=== PATIENT | male | born 1950 | race Caucasian/White ===

== ENCOUNTER 2023-08-26 10:54 | Outpatient (OUT) | payer MEDICARE, SELFPAY ==
--- NOTE | 2023-08-26 | XR_ITS ---
[address] [address] Patient Name: ALEXIS CORBETT MRN: [id number] date: 1950 Sex: M Assigned Patient Location: Current Patient Location: Accession/Order Number: [id number] Exam Date: 08/26/2023 10:55 Report Date: 08/27/2023 06:49 At the request of: ENRIQUE DEL ANGEL Procedure: XR foot BRY min 3V EXAMINATION: XR foot BRY min 3V, XR ankle BRY min 3V HISTORY: BILATERAL FOOT PAIN COMPARISON: XR right ankle and foot 04/27/2018, XR ankle left 05/06/2016 FINDINGS: RIGHT FINDINGS: BONES: Mild narrowing of the first metatarsophalangeal joint. Interval osseous protrusion/beaking at anterior margin of the talar dome. Mild narrowing of the tibiotalar joint, lateral greater than medial. Small degenerative osteophyte along the anterior articular margin of tibial plafond. SOFT TISSUES: No visible soft tissue swelling. OTHER: Negative. LEFT FINDINGS: BONES: 1.6 cm lucency within lateral aspect of distal tibia. Small osseous protrusion/bone beaking at anterior margin of talar dome. SOFT TISSUES: No visible soft tissue swelling. OTHER: Negative. XR/XR foot BRY min 3V IMPRESSION: RIGHT CONCLUSION: 1. Interval osseous growth/bone beaking along anterior dorsal margin of the talus adjacent the talar dome which likely impedes flexion. 2. Mild degenerative changes of the tibiotalar joint. 3. Mild degenerative change of the first metatarsophalangeal joint. LEFT CONCLUSION: 1. Interval development of small osseous growth/bone beaking along the anterior margin of talar dome which may impede flexion. Smaller than seen on right. 2. Interval development of a smoothly marginated osseous lucency within lateral aspect of distal tibia adjacent the articular surface; subchondral cyst versus bone cyst. Consider MRI for further evaluation. Electronically authenticated by: KORINA DAVEY Date: 08/27/2023 06:49
--- NOTE | 2023-08-26 | XR_ITS ---
[address] [address] Patient Name: ALEXIS CORBETT MRN: [id number] date: 1950 Sex: M Assigned Patient Location: Current Patient Location: Accession/Order Number: [id number] Exam Date: 08/26/2023 10:55 Report Date: 08/27/2023 06:49 At the request of: ENRIQUE DEL ANGEL Procedure: XR ankle BRY min 3V EXAMINATION: XR foot BRY min 3V, XR ankle BRY min 3V HISTORY: BILATERAL FOOT PAIN COMPARISON: XR right ankle and foot 04/27/2018, XR ankle left 05/06/2016 FINDINGS: RIGHT FINDINGS: BONES: Mild narrowing of the first metatarsophalangeal joint. Interval osseous protrusion/beaking at anterior margin of the talar dome. Mild narrowing of the tibiotalar joint, lateral greater than medial. Small degenerative osteophyte along the anterior articular margin of tibial plafond. SOFT TISSUES: No visible soft tissue swelling. OTHER: Negative. LEFT FINDINGS: BONES: 1.6 cm lucency within lateral aspect of distal tibia. Small osseous protrusion/bone beaking at anterior margin of talar dome. SOFT TISSUES: No visible soft tissue swelling. OTHER: Negative. XR/XR ankle BRY min 3V IMPRESSION: RIGHT CONCLUSION: 1. Interval osseous growth/bone beaking along anterior dorsal margin of the talus adjacent the talar dome which likely impedes flexion. 2. Mild degenerative changes of the tibiotalar joint. 3. Mild degenerative change of the first metatarsophalangeal joint. LEFT CONCLUSION: 1. Interval development of small osseous growth/bone beaking along the anterior margin of talar dome which may impede flexion. Smaller than seen on right. 2. Interval development of a smoothly marginated osseous lucency within lateral aspect of distal tibia adjacent the articular surface; subchondral cyst versus bone cyst. Consider MRI for further evaluation. Electronically authenticated by: KORINA DAVEY Date: 08/27/2023 06:49
== END 2023-08-26 10:55 | disposition home or self-care (01) ==
LOC: EC 10:54
PROVIDERS: Visit Provider Podiatrist Foot & Ankle Surgery
DX: M25.572 Pain in left ankle and joints of left foot (principal); M25.571 Pain in right ankle and joints of right foot; M89.8X7 Other specified disorders of bone, ankle and foot
CPT/HCPCS: 73610; 73630

== ENCOUNTER 2023-11-17 11:57 | Outpatient (OUT) | payer MEDICARE, SELFPAY ==
--- NOTE | 2023-11-17 | XR_ITS ---
[address] [address] Patient Name: ALEXIS CORBETT MRN: [id number] date: 1950 Sex: M Assigned Patient Location: Current Patient Location: Accession/Order Number: [id number] Exam Date: 11/17/2023 12:03 Report Date: 11/18/2023 08:42 At the request of: KORINA MUÑOZ Procedure: XR knee RT 4V PROCEDURE: XR knee RT 4V COMPARISON: None. HISTORY: RIGHT KNEE PAIN FINDINGS: BONES:No acute fracture or dislocation. Mild degenerative changes with marginal osteophyte formation SOFT TISSUES:Negative. No visible soft tissue swelling. EFFUSION:Small joint effusion OTHER: Negative. XR/XR knee RT 4V IMPRESSION: Mild osteoarthritis Electronically authenticated by: SHELLEY STRANGE Date: 11/18/2023 08:42
--- OUTSIDE RECORDS SUMMARY | 2023-11-17 12:11 | XMS_ITS | CCD ---
Author Organization [facility] Care Team Providers Care Salt Washer Name Role Phone LISBETH EDOUARD Attending Unavailable LISBETH EDOUARD Consulting Unavailable LISBETH EDOUARD Admitting Unavailable WONDERLY, DR MERISSA Swenson Primary Care Unavailable Merissa Schulte MD Primary Care Provider Clinton HASKINS, Lamont Truong Attending Unavailab le WONDERLY, MERISSA Leela Referring Unavailable WONDERLY, MERISSA B Primary Care Unavailable WONDERLY, MERISSA B Referring Unavailable WONDERLY, MERISSA B Primary Care Unavailable WONDERLY, MERISSA B Referring Unavailable WONDERLY, MERISSA B Primary Care Unavailable JACOB DHILLON Referring Unavailable WONDERLY, MERISSA Leela Primary Care Unavailable JACOB DHILLON Attending Unavailable WONDERLY, MERISSA B Referring Unavailable WONDERLY, MERISSA B Primary Care Unavailable WONDERLY, MERISSA B Attending Unavailable WONDERLY, MERISSA B Referring Unavailable LIANNA JIMENEZ Attending Unavailable WONDERLY, MERISSA Swenson Attending Unavailable WONDERLY, MERISSA Swenson Attending Unavailable PUMPJOSH Attending Unavailable Allergies Allergy Classification Reported Allergen(s) Allergy Type Date of Onset Reaction(s) Facility (9 sources) Bee Venom Protein (Honey Bee); Translations: [BEE VENOM PROTEIN (HONEY BEE)] Propensity to adverse reactions to drug 03-05-2019 [facility] Medications Current Medications Medication Drug Class(es) Dates Sig (Normalized) Sig (Original) ascorbic acid 500 mg oral tablet (7 sources) Vitamin C take 3 tablets by mouth in the morning ascorbic acid (VITAMIN C) 500 mg tablet Take 3 tablets (1,500 mg total) by mouth in the morning. 0 Active cholecalciferol 0.125 mg oral tablet (7 sources) Vitamin D take 1 tablet by mouth in the morning cholecalciferol, vitamin D3, 5,000 units tablet Take 1 tablet (5,000 Units total) by mouth in the morning. 0 Active meloxicam 15 mg oral tablet (7 sources) Nonsteroidal Anti-inflammatory Drug take 1 tablet by mouth in the morning meloxicam (MOBIC) 15 mg tablet Take 1 tablet (15 mg total) by mouth in the morning. 0 Active vitamin e 100 unt oral capsule (7 sources) take 1 capsule by mouth in the morning vitamin E 100 units capsule Take 1 capsule (100 Units total) by mouth in the morning. 0 Active Problems Active Problems Problem Classification Problem Date Documented Date Episodic/Chronic Cancer of prostate (10 sources) Adenocarcinoma of prostate; Translations: [Malignant neoplasm of prostate] Onset: 03-26-2016 09-17-2022 Chronic Cardiac dysrhythmias (1 source) Supraventricular tachycardia; Translations: [Supraventricular tachycardia, unspecified] 06-27-2023 Chronic Other connective tissue disease (7 sources) Disorder of soft tissue; Translations: [Other specified soft tissue disorders] 06-27-2023 Episodic Other connective tissue disease (6 sources) Pain in right lower limb; Translations: [Pain in right leg] 06-27-2023 Episodic Other connective tissue disease (1 source) Other specified soft tissue disorders; Translations: [Other specified soft tissue disorders] Onset: 06-27-2023 Episodic Other connective tissue disease (1 source) Pain in right leg; Translations: [Pain in right leg] Onset: 06-27-2023 Episodic Unclassified (2 sources) CONTACT W/AND (SUSP) EXPOS COVID-19; Translations: [CONTACT W/AND (SUSP) EXPOS COVID-19] Onset: 10-12-2021 Unclassified (1 source) Supraventricular tachycardia, unspecified; Translations: [Supraventricular tachycardia, unspecified] Onset: 06-27-2023 Viral infection (1 source) COVID-19; Translations: [COVID-19] Onset: 10-12-2021 Past or Other Problems Problem Classification Problem Date Documented Da te Episodic/Chronic Genitourinary symptoms and ill-defined conditions (7 sources) Blood in urine; Translations: [Hematuria, unspecified] Onset: 06-01-2019 06-09-2019 Episodic Other and unspecified benign neoplasm (7 sources) Adenomatous polyp of colon ; Translations: [Benign neoplasm of sigmoid colon] Onset: 03-15-2019 03-15-2019 Episodic Other screening for suspected conditions (not mental disorders or infectious disease) (7 sources) Patient encounter status; Translations: [Encounter for screening for malignant neoplasm of colon] Onset: 02-25-2019 02-25-2019 Episodic Unclassified (1 source) CONTACT W/AND (SUSP) EXPOS COVID-19; Translations: [CONTACT W/AND (SUSP) EXPOS COVID-19] Onset: 10-11-2021 Unclassified (7 sources) Onset: 03-15-2019 03-15-2019 Results Test Name Value Interpretation Reference Range Facility Prostate specific Ag [Mass/V ol]on 09-17-2023 PROSTATIC SPEC ANT 0.21 ng/mL Normal 0.00-4.00 [facility] Comment on above: Result Comment: The method used for this test is Gousto DXI chemiluminescent immunoassay. Values obtained by different assay methods cannot be used interchangeably. Performed By: #### C , 53317-1, BMP, 1987-5, 3084-1, 12759-4, 36772-4, 27160-4, 5130-0, 12694-5, 93623-8, 35371-5 #### [facility] ([id number]) [address], [address] [place] [address] MR TIBIA FIBULA RIGHT W AND WO IV CONTRASTon 07-10-2023 MR TIBIA FIBULA RIGHT W AND WO IV CONTRAST MR TIBIA FIBULA RIGHT W AND WO IV CONTRAST HISTORY: abnormal us / mass calf TECHNIQUE: Routine MRI of the right tibia/fibula, with and without contrast. Given 19 mL of intravenous ProHance. COMPARISON: None available. RESULT: Ruptured Cantu's cyst, tracking inferiorly into the calf, with the dominant component measuring around 5.1 cm in length, and the ruptured component tracking inferiorly out of [id number]. No suspicious enhancement. No evidence for fracture, or marrow replacing process. Large zzuhc-pe-vynk imaging of the knee with probable tearing of the medial meniscus, but not well assessed on this study. Degenerative changes of the knee, not well assessed on this study. Visualized tendons and musculature grossly unremarkable. IMPRESSION: Ruptured Cantu's cyst tracking into the calf. No suspicious findings. ELECTRONICALLY SIGNED BY: Burak Leigh MD Normal Not Available BASIC METABOLIC PANLon 06-26 Anion gap [Moles/Vol] 10 mmol/L Normal 5-15 [facility] Comment on above: Performed By: #### Molina , 97820-9, BMP, 1987-08, 308-, 56330-2, 91795-1, 82329-4, 5130-0, 26190-1, 67781-9, #### [facility] ([id number]) [address], [address] [place] [address] Calcium [Mass/Vol] 9.1 mg/dL Normal 8.5-10.5 [facility] Comment on above: Performed By: #### Molina MAYFIELD, 97280-1, BMP, 1987-08, 308-, 25604-4, 63083-7, 29963-4, 5130-0, 35849-6, 17100-7, #### [facility] ([id number]) [address], [address] [place] [address] Chloride [Moles/Vol] 101 mmol/L Normal 98-109 [facility] Comment on above: Performed By: #### Molina MAYFIELD, 45563-1, BMP, 1987-08, 3083-04, 16413-0, 90559-9, 07984-3, 5130-0, 58702-6, 06722-5, #### [facility] ([id number]) [address], [address] [place] [address] CO2 [Moles/Vol] 26 mmol/L Normal 22-32 [facility] Comment on above: Performed By: #### Molina MAYFIELD, 33086-5, BMP, 1987-08, 3083-, 59651-1, 14617-7, 06495-2, 5130-0, 05479-9, 50624-8, 25962-7 #### [facility] ([id number]) [address], [address] [place] [address] Creatinine [Mass/Vol] 0.74 mg/dL Normal 0.60-1.30 [facility] Comment on above: Result Comment: METH OD TRACEABLE TO IDMS STANDARD Performed By: #### C TRAN, 21862-3, ADDY, 1987-08, 3083-, 49258-0, 52848-8, 31201-7, 5130-0, 31547-3, 59866-9, 17192-9 #### [facility] ([id number]) [address], [address] [place] [address] eGFR (CKD-EPI) NON-RACE DEPENDENT >90 Normal >59 [facility] Comment on above: Result Comment: Reported eGFR is based on the CKD-EPI 2020 equation that does not use a race coefficient. Performed By: #### C TRAN, 00806-9, ADDY, 1987-08, 3083-04, 47757-7, 34701-0, 32754-5, 5130-0, 38214-7, 16987-9, 22175-6 #### [facility] ([id number]) [address], [address] [place] [address] Glucose [Mass/Vol] 101 mg/dL High 65-99 [facility] Comment on above: Performed By: #### C TRAN, 85031-5, ADDY, 1987-08, 3083-04, 13365-2, 19625-4, 59149-4, 5130-0, 94992-6, 43502-7, 18832-8 #### [facility] ([id number]) [address], [address] [place] [address] Potassium [Moles/Vol] 3.9 mmol/L Normal 3.5-5.0 [facility] Comment on above: Performed By: #### C TRAN, 37573-6, ADDY, 1987-08, 3083-04, 44535-5, 61802-8, 27113-5, 5130-0, 25961-3, 84808-6, 75358-1 #### [facility] ([id number]) [address], [address] [place] [address] Sodium [Moles/Vol] 137 mmol/L Normal 134-146 [facility] Comment on above: Performed By: #### C TRAN, 17438-7, ADDY, 1987-08, 3083-, 12022-2, 78344-8, 95050-7, 5130-0, 74208-5, 76572-8, 05739-4 #### [facility] ([id number]) [address], [address] [place] [address] Urea nitrogen [Mass/Vol] 12 mg/dL Normal 5-27 [facility] Comment on above: Performed By: #### C TRAN, 58803-7, ADDY, 1987-08, 3083-04, , 42201-0, 51350-4, 5130-0, 13573-4, 80642-1, 85884-1 #### [facility] ([id number]) [address], [address] [place] [address] COMPLETE BLOOD COUNTon 06-26 Erythrocyte distribution width (RBC) [Ratio] 13.5 % Normal 11.5-15.0 [facility] Comment on above: Performed By: #### C TRAN, 91210-8, ADDY, 1987-08, 3083-04, , 86290-9, 27153-8, 5130-0, 18676-1, 49884-5, 19937-5 #### [facility] ([id number]) [address], [address] [place] [address] Hematocrit (Bld) [Volume fraction] 45.2 % Normal 39-49 [facility] Comment on above: Performed By: #### C TRAN, 62424-8, [facility], 1987-08, 3083-04, , 72562-3, 80325-5, 5130-0, 54281-1, 47929-0, 86858-4 #### [facility] ([id number]) [address] [facility], [address] [place] [address] Hemoglobin (Bld) [Mass/Vol] 15.3 g/dL Normal 13.0-17.0 [facility] Comment on above: Performed By: #### C TRAN, 76057-5, [facility], 1987-08, 3083-, 57922-6, 78753-0, 66956-3, 5130-0, 18635-9, 38013-0, 92157-0 #### [facility] ([id number]) [address], [address] [place] [address] MCH (RBC) [Entitic mass] 32.3 pg Normal 27-34 [facility] Comment on above: Performed By: #### C TRAN, 92205-5, ADDY, 1987-08, 3083-04, 79006-8, 88292-2, 71121-6, 5130-0, 78322-3, 58232-9, 34500-1 #### [facility] ([id number]) [address] [facility], [address] [place] [address] MCHC (RBC) [Mass/Vol] 33.9 g/dL Normal 32-36 [facility] Comment on above: Performed By: #### C TRAN, 57080-5, [facility], 1987-08, 3083-04, 48598-5, 10439-1, 09030-0, 5130-0, 55668-1, 19885-4, 73491-9 #### [facility] ([id number]) [address] [facility], [address] [place] [address] MCV (RBC) [Entitic vol] 95 fL Normal 80-100 [facility] Comment on above: Performed By: #### C TRAN, 69060-9, [facility], 1987-08, 3083-04, 16792-4, 59963-1, 68965-8, 5130-0, 32702-1, 72699-6, 67799-9 #### [facility] ([id number]) [address], [address] [place] [address] Platelet mean volume (Bld) [Entitic vol] 7.0 fL Normal 7-12 [facility] Comment on above: Performed By: #### C TRAN, 00061-4, ADDY, 1987-08, 3083-, 86236-8, 60505-9, 25514-6, 5130-0, 92506-4, 58093-4, 24247-2 #### [facility] ([id number]) [address], [address] [place] [address] Platelets (Bld) [#/Vol] 478 10*3/uL High 150-450 [facility] Comment on above: Performed By: #### Molina MAYFIELD, 90095-9, ADDY, 1987-08, 3083-04, 70571-0, 33515-0, 86690-5, 5130-0, 41243-4, 40737-0, #### [facility] ([id number]) [address], [address] [place] [address] RBC COUNT 4.74 X10E12/L Normal 4.10-5.70 [facility] Comment on above: Performed By: #### Molina MAYFIELD, 02165-8, [facility], 1987-08, 3083-, 96236-6, 11906-2, 74280-7, 5130-0, 72941-3, 30158-0, 48140-7 #### [facility] ([id number]) [address], [address] [place] [address] WBC (Bld) [#/Vol] 6.5 10*3/uL Normal 4.0-11.0 [facility] Comment on above: Performed By: #### Molina MAYFIELD, 32269-1, [facility], 1987-08, 3083-04, 94814-0, 88731-2, 02245-2, 5130-0, 37774-0, 77685-5, 18268-9 #### [facility] ([id number]) [address], [address] [place] [address] CRP [Mass/Vol]on 06-27-2023 C REACTIVE PROTEIN 3.2 mg/dL High 0.000-0.744 [facility] Comment on above: Performed By: #### Molina MAYFIELD, 08823-8, ADDY, 1987-08, 3083-, 15926-3, 77558-9, 21300-8, 5130-0, 93518-7, 15377-8, #### [facility] ([id number]) [address] [facility], [address] [place] [address] Chromatin Ab Qlon 06-27-2023 CHROMATIN AB IGG <0.2 Normal <1.0 [facility] Comment on above: Performed By: #### Molina MAYFIELD, 83837-9, [facility], 1987-08, 3083-04, 20462-9, 23143-7, 58931-5, 5130-0, 89684-8, 34683-6, #### [facility] ([id number]) [address] [facility], [address] [place] [address] DNA double strand Ab Qn (S)o n 06-27-2023 DOUBLE STRANDED DNA 13 IU/ML High <5 [facility] Comment on above: Result Comment: Interpretation-------- <5 Negative 5-9 Indeterminate >9 Positive Performed By: #### C TRAN, 25469-6, BMP, 1987-08, 3083-04, 06223-1, 86487-2, 11093-0, 5130-0, 96360-5, 15072-6, 68125-2 #### [facility] ([id number]) [address], [address] [place] [address] ESR Photometric method (Bld) [Velocity]on 06-27-2023 ESR, ERYTHROCYTE SEDIMENTATION RATE 9 mm/h Normal 0-20 [facility] Comment on above: Performed By: #### C TRAN, 42785-9, ADDY, 1987-08, 3083-, 33437-7, 26861-1, 98953-6, 5130-0, 74032-5, 67929-3, 58861-0 #### [facility] ([id number]) [address] [facility], [address] [place] [address] Nuclear Ab IA Ql (S)on 06-26 CARMINA Screen w/reflex Positive Abnormal NEG [facility] Comment on above: Result Comment: Testing performed using multiplex flow immunoassay. Eleven different antigens associated with systemic autoimmune diseases (dsDNA,Sm,Sm/USER EXPERIENCE DESIGNER,USER EXPERIENCE DESIGNER,Chromatin, SSA,SSB,Nany-1,Scl70,Ribo P,Centromere B) are included in this screening test. Performed By: #### C TRAN, 84164-8, ADDY, 1987-08, 3083-04, 40561-0, 66736-2, 12748-8, 5130-0, 20289-7, 88580-6, 48745-9 #### [facility] ([id number]) [address] [facility], [address] [place] [address] Rheumatoid factor Nephelomet ry Qn (S)on 06-27-2023 RHEUMATOID FACTOR <10 Normal <20 [facility] Comment on above: Performed By: #### Molina MAYFIELD, 82423-9, ADDY, 1987-08, 3083-04, 55570-2, 12424-5, 11287-2, 5130-0, 65975-4, 94007-3, 06162-5 #### [facility] ([id number]) [address] [facility], [address] [place] [address] Ribonucleoprotein extractabl e nuclear IgG Qn (S)on 06-27-2023 USER EXPERIENCE DESIGNER ANTIBODY IGG <0.2 Normal <1.0 [facility] Comment on above: Performed By: #### Molina MAYFIELD, 87347-7, ADDY, 1987-08, 308-1, 05113-3, 87048-5, 59736-4, 5130-0, 52141-3, 86444-8, 03795-6 #### [facility] ([id number]) [address] [facility], [address] [place] [address] Fishman extractable nuclear Ab +Ribonucleoprotein extractable nuclear IgG Qn (S)on 06-27-2023 FISHMAN/USER EXPERIENCE DESIGNER AB IGG <0.2 Normal <1.0 [facility] Comment on above: Performed By: #### C , 62092-8, [facility], 1987-08, 3083-, 49877-0, 76124-9, 65257-3, 5130-0, 10019-8, 81620-2, 14376-3 #### [facility] ([id number]) [address] [facility], [address] [place] [address] Fishman extractable nuclear Ig G Qn (S)on 06-27-2023 ANTI-FISHMAN AB IGG <0.2 Normal <1.0 [facility] Comment on above: Performed By: #### C , 52648-7, [facility], 1987-08, 3083-, 73585-1, 84530-3, 82106-1, 5130-0, 48366-2, 18216-1, 85463-2 #### [facility] ([id number]) [address] [facility], [address] [place] [address] URIC ACIDon 06-27-2023 Urate [Mass/Vol] 7.9 mg/dL High 2.6-7.2 [facility] Comment on above: Performed By: #### C , 10418-5, [facility], 1987-08, 3083-, 29470-4, 62737-0, 79400-8, 5130-0, 02890-0, 40489-5, 10117-6 #### [facility] ([id number]) [address] [facility], [address] [place] [address] XR KNEE RT MIN 4 VWSon 06-26 XR KNEE RT MIN 4 VWS XR KNEE RT MIN 4 VW S Exam: 4 views of the right knee dated 06/27/2023. HISTORY: Right knee pain with swelling. No injury. COMPARISON: None. IMPRESSION: No acute osseous abnormalities of the right knee. Small spur formation in the medial and patellofemoral compartments. Finalized by Vivi Vilchis MD on 06/27/2023 8:40 PM Normal [facility] Covid-19 PCR (CVDTBH)on 09-20 SARS-CoV-2 (COVID-19) RNA EDGAR+probe Ql (Unsp spec) Detected Critically abnormal NOT DETECTED [facility] Comment on above: Result Comment: This test is not yet approved or cleared by the [place] FDA. When there are no FDA-approved or cleared tests available, and other criteria are met, FDA can make tests available under an emergency access mechanism called an Emergency Use Authorization (EUA). The EUA for this test is supported by the Quality Supervisor of Health and Human Service's (HHS's) declaration that circumstances exist to justify the emergency use of in vitro diagnostics for the detection and/or diagnosis of the virus that causes COVID-19. This EUA will remain in effect (meaning this test can be used) for the duration of the COVID-19 declaration justifying emergency of IVDs, unless it is terminated or revoked by FDA (after which the test may no longer be used). Performed By: #### [facility] #### [facility] [address] [place] [address] Dr. Bijan Lopez Encounters Encounter Date Encounter Type Care Provider Facility Start: 10-17-2023 End: 10-17-2023 ambulatory JOSH PUMP Not Available Start: 09-23-2023 End: 09-23-2023 ambulatory [facility] Start: 09-17-2023 End: 09-18-2023 ambulatory [facility] Start: 09-05-2023 ambulatory Lamont lopez DPM Facility:[facility] Start: 08-25-2023 End: 08-25-2023 ambulatory MERISSA Swenson WONDERLY Not Available Start: 08-11-2023 End: 08-11-2023 ambulatory MERISSA Swenson WONDERLY Not Available Start: 08-05-2023 End: 08-05-2023 ambulatory LIANNA JIMENEZ Not Available Start: 07-10-2023 End: 07-10-2023 ambulatory MERISSA Swenson WONDERLY Not Available Start: 06-27-2023 Orders Only Merissa langston MD Work Phone: [facility] Comment on above: Other specified soft tissue disorders; Pain in right leg Supraventricular tac hycardia, unspecified; Other specified soft tissue disorders; Pain in right leg Malignant neoplasm o f prostate (CMS-HCC); Other specified soft tissue disorders Start: 06-27-2023 End: 06-28-2023 ambulatory MERISSA SCHULTE [facility] Start: 06-27-2023 End: 06-27-2023 ambulatory MERISSA Swenson WONDERSALOME Not Available Start: 10-11-2021 End: 10-11-2021 ambulatory LISBETH EDOUARD Facility:[facility] Procedures Date Procedure Procedure Detail Performing Clinician Start: 09-23-2023 Follow-up visit Follow-up JACOB DHILLON Start: 11-26-2021 Colonoscopy Merissa de los santos MD Work Phone: Plan of Treatment Date Care Activity Detail Author Start: 11-26-2026 Screening for malign ant neoplasm of colon Colonoscopy [facility] Start: 09-23-2023 End: 09-23-2023 Patient encounter procedure 09/23/2023 1:00 PM EDT Office Visit [facility] [address] [place] [address] [place] [address] [address] [place] [address] Jacob Dhillon MD [address] [place] [address] [facility] Start: 09-18-2023 Adult BMI Screening Adult BMI Screen ing [facility] Start: 09-18-2023 Tobacco Screening Tobacco Screening [facility] Start: 06-27-2023 End: 06-26-2024 CARMINA Screen w/ Reflex CARMINA Screen w/ Reflex Lab Routine Other specified soft tissue disorders Pain in right leg Expected: 06/27/2023, Expires: 06/26/2024 [facility] Work Phone: Comment on above: Expected: 06/27/2023 , Expires: 06/26/2024 Start: 06-27-2023 End: 06-26-2024 Basic metabolic 2000 panel - Serum or Plasma [facility] Work Phone: Comment on above: Expected: 06/27/2023 , Expires: 06/26/2024 Start: 06-27-2023 End: 06-26-2024 C-reactive protein C-reactive protein Lab Routine Other specified soft tissue disorders Pain in right leg Expected: 06/27/2023, Expires: 06/26/2024 [facility] Work Phone: Comment on above: Expected: 06/27/2023 , Expires: 06/26/2024 Start: 06-27-2023 End: 06-26-2024 CBC panel - Blood by Automated count [facility] Work Phone: Comment on above: Expected: 06/27/2023 , Expires: 06/26/2024 Start: 06-27-2023 End: 06-26-2024 Erythrocyte sedimentation rate Erythrocyte Sedimentation Rate (ESR) Lab Routine Other specified soft tissue disorders Pain in right leg Expected: 06/27/2023, Expires: 06/26/2024 [facility] Work Phone: Comment on above: Expected: 06/27/2023 , Expires: 06/26/2024 Start: 06-27-2023 End: 06-26-2024 Rheumatoid factor Rheumatoid factor Lab Routine Other specified soft tissue disorders Pain in right leg Expected: 06/27/2023, Expires: 06/26/2024 [facility] Work Phone: Comment on above: Expected: 06/27/2023 , Expires: 06/26/2024 Start: 06-27-2023 End: 06-26-2024 Urate [Mass/volume] in Serum or Plasma [facility] Work Phone: Comment on above: Expected: 06/27/2023 , Expires: 06/26/2024 Start: 12-20-2022 COVID-19 Vaccine () [facility]19 Vaccine () [facility] Start: 12-20-2022 Influenza vaccination Influenza Vacc ine [facility] Start: 01-02-2022 DTaP,Tdap and Td Vaccines (2 - Td or Tdap) DTaP,Tdap and Td Vaccines (2 - Td or Tdap) [facility] Start: 12-10-2015 Fall Risk Screening Fall Risk Screen ing [facility] Start: 1969 Administration of varicella zoster vaccine Zoster (Shingles) Vaccine (1 of 2) [facility] Start: 1968 Adult BMI Follow Up Plan Adult BMI Follow Up Plan [facility] Start: 1962 Depression Screening Depression Scre ening [facility] Start: 1950 Medicare Annual Well ness Visit Medicare Annual Wellness [facility] C reactive protein [Mass/volume] in Serum or Plasma C-reactive protein Lab Routine Other specified soft tissue disorders Pain in right leg 06/27/2023 10:34 AM EST [facility] Erythrocyte sedimentation rate by Photometric method Erythrocyte Sedimentation Rate (ESR) Lab Routine Other specified soft tissue disorders Pain in right leg 06/27/2023 10:34 AM EST [facility] Nuclear Ab [Presence ] in Serum by Immunoassay CARMINA Screen w/ Reflex Lab Routine Other specified soft tissue disorders Pain in right leg 06/27/2023 10:34 AM EST [facility] Rheumatoid factor [Units/volume] in Serum by Nephelometry Rheumatoid factor Lab Routine Other specified soft tissue disorders Pain in right leg 06/27/2023 10:34 AM EST [facility] Payers Date Payer Category Payer Private Health Insurance [id number] 2015 Medicare [id number] 1959 Medicare [id number] 1959 Private Health Insurance CLI [id number] 1950 Unknown [id number] 2.16.84 0.1.380939.3.579.2.593 1950 Unknown [id number] 2.16. 840.1.832464.3.579.2.196 1950 Unknown [id number] 2.16.8 40.1.178946.3.579.2.1286 1950 Unknown [id number] 2.16.8 40.1.342612.3.579.2.1286 1950 Unknown [id number] 2.16.8 40.1.771626.3.579.2.1286 1950 Unknown [id number] 2.16.8 40.1.545789.3.579.2.1286 1950 Unknown [id number] 2.16.8 40.1.589173.3.579.2.1286 1950 Unknown [id number] 2.16.84 0.1.209807.3.579.2.1259 1950 Unknown [id number] 2.16.84 0.1.893585.3.579.2.1259 1950 Unknown [id number] 2.16.84 0.1.198361.3.579.2.1259 1950 Unknown [id number] 2.16.84 0.1.776769.3.579.2.1259 1950 Unknown [id number] 2.16.84 0.1.074785.3.579.2.1259 1950 Unknown [id number] 2.16.84 0.1.799075.3.579.2.1259 Social History Date Type Detail Facility Start: 11-01-2021 [facility] End: 04-21-2016 History of tobacco use Current smoker [facility] End: 04-21-2016 History of tobacco use Cigarette Smoker [facility] Start: 05-23-2020 End: 11-01-2021 Cigarettes smoked current (pack per day) - Reported 1 [facility] Start: 11-01-2021 Tobacco use and exposure Smokeless tobacco non-user [facility] Start: 09-17-2022 Alcohol intake Current drinke r of alcohol (finding) [facility] Start: 05-23-2020 End: 09-17-2022 Tobacco use panel [facility] Childcare Unknown [facility] Start: 06-01-2019 Alcohol Comment weekly [facility] Start: 1950 Sex Assigned At Not on file P [facility] Clinical Note 06-20-2021 Note Date & Type Note Facility 06-20-2021 Note PROCEDURE: Sticky VCT 64. Without IV contrast, axial helical 5 mm slice thickness images of the chest performed. Comparison is made with the prior examination of July 24, 2018 and November 05, 2019. FINDINGS: LUNG PARENCHYMA; Stable. No new nodule or mass. Biapical scarring, right middle lobe subsolid nodules (largest 5 x 8 mm). MEDIASTINUM/HILUM: Stable. Low volume mediastinal/hilar lymph nodes (largest aggregate within the precarinal space 8 x 18 mm). Left hilar, mediastinal calcified granulomas. AIRWAY: No airway mass, minimal mucus within the right posterolateral wall of the lower trachea. No pleural or pericardial effusion. UPPER ABDOMINAL IMAGES: Unremarkable. IMPRESSION: Stable right middle lobe subsolid, subcentimeter lung nodules and low volume lymph nodes. No endotracheal/endobronchial mass. Report reported and signed by Patrick Olvera on 06/20/2021 10[address] [facility] Relocation Services Specialist Evaluation note Note Date & Type Note Facility Evaluation note Diagnosis Other specified soft tissue disorders Pain in right leg documented in this encounter [facility] Evaluation note Note Date & Type Note Facility Evaluation note Diagnosis Supraventricular tachycardia, unspecified Other specified soft tissue disorders Pain in right leg documented in this encounter [facility] Evaluation note Note Date & Type Note Facility Evaluation note Diagnosis Malignant neoplasm of prostate (CMS-HCC) Malignant neoplasm of prostate Other specified soft tissue disorders documented in this encounter [facility] Instructions Note Date & Type Note Facility Instructions Not on filedocumented in this en counter [facility] Instructions Note Date & Type Note Facility Instructions Not on filedocumented in this en counter [facility] Summary Purpose Family History No Family History Records FoundNo Family History Records FoundNo Family History Records FoundNo Family History Records FoundNo Family History Records FoundNo Family History Records Found Advance Directives No Advanced Directives Records FoundNo Advanced Directives Records FoundNo Advanced Directives Records FoundNo Advanced Directives Records FoundNo Advanced Directives Records FoundNo Advanced Directives Records Found Additional Source Comments (unrecognized sect ion and content) No Status Records FoundNo Status Records FoundNo Status Records FoundNo Status Records FoundNo Status Records FoundNo Status Records Found INFORMATION SOURCE (unrecogn ized section and content) DATE CREATED AUTHOR 06/21/2021 [facility] dical Specialist DATE CREATED AUTHOR AUTHOR'S ORGANIZ ATION 10/12/2021 [facility] DATE CREATED AUTHOR AUTHOR'S ORGANIZ ATION 09/08/2023 [facility] DATE CREATED AUTHOR AUTHOR'S ORGANIZ ATION 09/18/2023 [facility] DATE CREATED AUTHOR AUTHOR'S ORGANIZ ATION 09/24/2023 [facility] DATE CREATED AUTHOR AUTHOR'S ORGANIZ ATION 10/22/2023 [facility] dical Specialists [employer] Care Teams (unrecognized sec tion and content) [employer] Relationship Specialty Start Date End Date Merissa Schulte MD [address] [place] [address] PCP - General Family Medicine 03/26/16 [employer] Relationship Specialty Start Date End Date Merissa Schulte MD [address] [place] [address] PCP - General Family Medicine 03/26/16 FOR RECORDS PERTAINING TO PATIENTS WHO ARE OR HAVE BEEN ENROLLED IN A CHEMICAL DEPENDENCY/SUBSTANCEABUSE PROGRAM, SOME INFORMATION MAY BE OMITTED. This clinical summary was aggregated from multiple sources. Caution should be exercised in using it in the provision of clinical care. This summary normalizes information from multiple sources, and as a consequence, information in this document may materially change the coding, format and clinical context of patient data. In addition, data may be omitted in some cases. CLINICAL DECISIONS SHOULD BE BASED ON THE PRIMARY CLINICAL RECORDS. [facility]. provides no warranty or guarantee of the accuracy or completeness of information in this document.
== END 2023-11-17 11:58 | disposition home or self-care (01) ==
LOC: EC 11:57
PROVIDERS: Visit Provider Orthopaedic Surgery
DX: M25.561 Pain in right knee (principal); M17.11 Unilateral primary osteoarthritis, right knee
CPT/HCPCS: 73564